=== PATIENT | female | born 1965 | race Two or more races ===

== ENCOUNTER 2019-05-31 12:23 | Day surgery (SDC) | payer BC ==
[2019-05-31] MEDS ORDERED: PROPOFOL 20 ML (15:25)
[2019-05-31] MEDS ORDERED: PROPOFOL 200 MG INJ (15:26)
[2019-05-31] MEDS ORDERED: ACETAMINOPHEN 1000MG/100ML IV 100 ML IVPB (16:30)
== END 2019-05-31 16:43 | disposition home or self-care (01) ==
LOC: GIL 12:23
DX: D12.8 Benign neoplasm of rectum (principal); K64.8 Other hemorrhoids; K64.4 Residual hemorrhoidal skin tags; K57.30 Diverticulosis of large intestine without perforation or abscess without bleeding; K29.50 Unspecified chronic gastritis without bleeding; I10 Essential (primary) hypertension; E03.9 Hypothyroidism, unspecified
CPT/HCPCS: 43239; 88305; 88312